=== PATIENT | male | born 1995 | race African-American/Black ===

== ENCOUNTER 2017-03-23 09:07 | Emergency (ER) | payer SELFPAY ==
[2017-03-23] MEDS ORDERED: MAGNESIUM HYDROXIDE/AL HYDROX 30 ML UDC PO ONE ×2 (09:30→09:43)
--- NOTE | 2017-03-23 09:33 | ED Physician Documentation ---
General Adult - HISTORIAN Historian: patient - HPI Stated Complaint: BLOOD IN URINE Chief Complaint: General Adult Additional Information: Saw blood in urine today. Girlfriend dx'ed with a UTI yesterday so he is concerned about STD. Had severe RUQ pain yesterday. Sharp, intense. Worse with deep breath, cough, after eating when he is full, with lying down. . Had loose stool at 0200 today. Mo fever. - ROS CONST: no problems - PAST HX Past History: none Surgeries/Procedures: none Allergies/Adverse Reactions: Allergies Allergy/AdvReac Type Severity Reaction Status Date / Time No Known Allergies Allergy Unverified 03/23/17 09:11 Home Medications: Ambulatory Orders Medication Instructions Recorded traMADol HCL [Ultram] 50 mg PO Q6H PRN #10 tablet 03/23/17 - SOCIAL HX Smoking History: cigarettes (1/2 PPD x 8 years) Alcohol Use: none Drug Use: none - FAMILY HX Family History: Yes (DM, M ) - VITAL SIGNS Vital Signs: Vital Signs Temp Pulse Resp BP Pulse Ox 97.4 F L 74 16 158/93 98 03/23/17 09:08 03/23/17 09:08 03/23/17 09:08 03/23/17 09:08 03/23/17 09:08 - REVIEWED ASSESSMENTS Nursing Assessment Reviewed: Yes Vitals Reviewed: Yes Progress - Progress Progress: Maalox helped abdominal pain. Labs good. ED Results Lab/Radiology - Orders Orders: ED Orders Category Date Time Status CBC/PLATELET/DIFF Routine Lab 03/23/17 Ordered CHLAMYDIA & GONORRHOEAE Stat Lab 03/23/17 Ordered CMP Routine Lab 03/23/17 Ordered URINALYSIS Routine Lab 03/23/17 Ordered Magnesium Hydroxide/Al Hydrox [Maalox] Med 03/23/17 09:30 Once 30 ml PO NOW ONE General Adult Physical Exam - PHYSICAL EXAM GENERAL APPEARANCE: mild distress EENT: eye inspection normal, ENT inspection normal, pharynx normal NECK: normal inspection, thyroid normal, supple RESPIRATORY: no resp distress, breath sounds normal CVS: reg rate & rhythm, heart sounds normal, no murmur ABDOMEN: soft, no organomegaly, normal bowel sounds, no distension, tenderness ( RUQ, at MCL) RECTAL: deferred BACK: normal inspection, no CVA tenderness, other (no midline tenderness) SKIN: warm/dry, normal color EXTREMITIES: normal range of motion (gait), no evidence of injury NEURO: CN's nml as tested, motor nml, sensation nml, cognition normal Discharge Clincal Impression: Abdominal pain in male Prescriptions: traMADol HCL [Ultram] 50 mg PO Q6H PRN #10 tablet PRN Reason: Pain Additional Instructions: Return to the ER if you cannot urinate for 10 hours. Drink plenty of water. Sip on over the counter Maalox, a teaspoon every hour or two, for the abdominal pain. Home Medications: Ambulatory Orders traMADol HCL [Ultram] 50 mg PO Q6H PRN #10 tablet 03/23/17 Condition: Good Disposition: 01 HOME, SELF-CARE Decision to Admit: NO Decision Time: 10:37
[2017-03-23] MEDS ORDERED: Lidocaine 2%Visc 15ml 20 MG/ML UDC ONE (09:43)
[2017-03-23 09:56] LABS: BASOPHILS % 0.7 (0.0-1.5); EOSINOPHILS % 4.6 % (0.0-6.8); MEAN CORPUSCULAR HEMOGLOBIN 30.1 pg (28.0-34.0); MEAN CORPUSCULAR VOLUME 96.2 fl (80.0-100.0); NEUTROPHILS # 4.6 # k/uL (1.4-7.7)
[2017-03-23 10:05] LABS: APPEARANCE,URINE Clear (CLEAR); COLOR,URINE Yellow (YELLOW); OCCULT BLOOD,URINE Negative (NEGATIVE); UROBILINOGEN URINE 0.2 Eu (0.2-1.0)
[2017-03-23 10:10] LABS: eGFR (African) > 60; eGFR (Non-African) > 60
[2017-03-23 10:13] LABS: AMORPHOUS SEDIMENT,UR FEW (NEGATIVE)
[2017-03-23] MEDS ORDERED: AZITHROMYCIN 250 MG TABLET PO ONE (10:27)
[2017-03-23] MEDS ORDERED: Lidocaine 1% 5ml(IM or SUTURE)(PAIN CLINIC) ONE (10:40)
[2017-03-23 11:03] VITALS: BP 140/72
== END 2017-03-23 11:00 | disposition home or self-care (01) ==
LOC: ED 09:07
DX: R10.9 Unspecified abdominal pain (principal); F17.210 Nicotine dependence, cigarettes, uncomplicated
CPT/HCPCS: 80053; 81002; 85025; 87801; 99283; A9270; J0696

== ENCOUNTER 2018-01-22 07:09 | Emergency (ER) | payer SELFPAY ==
[2018-01-22 07:27] VITALS: BP 131/62
--- NOTE | 2018-01-22 07:35 | ED Physician Documentation ---
General Adult - HISTORIAN Historian: patient - HPI Stated Complaint: Sore throat/Cough Chief Complaint: Sore Throat Additional Information: 22yo male who developed a sore throat 3 days ago that has been getting worse. This AM awoke with sweats, and a mild nonproductive cough. Patient denies any rash, has some mild achiness. Timing: still present - ROS CONST: no problems - PAST HX Past History: none Other History: none Surgeries/Procedures: none Allergies/Adverse Reactions: Allergies Allergy/AdvReac Type Severity Reaction Status Date / Time No Known Allergies Allergy Verified 01/22/18 07:27 Home Medications: Ambulatory Orders Medication Instructions Recorded Amoxicillin [Trimox] 500 mg PO TID #30 capsule 01/22/18 - SOCIAL HX Smoking History: greater than 1 pack/day Alcohol Use: none Drug Use: none - FAMILY HX Family History: No - VITAL SIGNS Vital Signs: Vital Signs Temp Pulse Resp BP Pulse Ox 100.2 F H 91 H 16 131/62 98 01/22/18 07:15 01/22/18 07:15 01/22/18 07:15 01/22/18 07:15 01/22/18 07:15 - REVIEWED ASSESSMENTS Nursing Assessment Reviewed: Yes Vitals Reviewed: Yes ED Results Lab/Radiology - Lab Results Lab Results: Rapid strep - POSITIVE General Adult Physical Exam - PHYSICAL EXAM GENERAL APPEARANCE: mild distress EENT: eye inspection normal, pharyngeal erythema (minimal exudate), purulent nasal drainage NECK: normal inspection, lymphadenopathy (mild to ant cervical) RESPIRATORY: no resp distress, chest non-tender, breath sounds normal. No: wheezes, rales, rhonchi CVS: reg rate & rhythm, heart sounds normal, equal pulses, no murmur SKIN: warm/dry, normal color NEURO: oriented X3, mood/affect nml Discharge Clincal Impression: Strep pharyngitis Referrals: Primary Doctor,No [Primary Care Provider] - 2 Days Additional Instructions: Drink a lot of fluids. Gargle with salt water. Use throat lozenges as needed for pain. TAKE ALL OF THE ANTIBIOTICS UNTIL IT IS GONE. Amoxil 500mg 3 times a day. Condition: Stable Disposition: 01 HOME, SELF-CARE Decision to Admit: NO Date of Decison to Admit: 01/22/18 Decision Time: 07:45
[2018-01-22] MEDS ORDERED: AMOXICILLIN 500 MG CAPSULE PO ONE (07:40)
== END 2018-01-22 07:50 | disposition home or self-care (01) ==
LOC: ED 07:09
DX: J02.0 Streptococcal pharyngitis (principal)
CPT/HCPCS: 87880; 99282

== ENCOUNTER 2018-11-06 11:35 | Emergency (ER) | payer SELFPAY ==
--- NOTE | 2018-11-06 11:46 | ED Physician Documentation ---
General Adult - HISTORIAN Historian: patient - HPI Stated Complaint: breast lump Chief Complaint: General Adult Onset: days ago (2) Timing: still present Severity: mild Further Comments: yes (Per pt he has had a pain and lump under his left nipple x 3 days "or so" he does note increased weight lifting and he has pain with touch and lifting the left arm. He has no breast discharge. He also has a rash on his neck. No other complaints) Last known Well Code/Unknown Code: Unknown - ROS CONST: no problems - PAST HX Past History: none Immunizations: UTD Allergies/Adverse Reactions: Allergies Allergy/AdvReac Type Severity Reaction Status Date / Time No Known Allergies Allergy Verified 11/06/18 11:52 Home Medications: Ambulatory Orders Medication Instructions Recorded NK 11/06/18 - SOCIAL HX Smoking History: cigarettes Alcohol Use: none Drug Use: none - FAMILY HX Family History: No - VITAL SIGNS Vital Signs: Vital Signs Temp Pulse Resp BP Pulse Ox 131/62 01/22/18 07:50 - REVIEWED ASSESSMENTS Nursing Assessment Reviewed: Yes Vitals Reviewed: Yes General Adult Physical Exam - PHYSICAL EXAM GENERAL APPEARANCE: no distress EENT: eye inspection normal NECK: normal inspection RESPIRATORY: no resp distress, chest non-tender, breath sounds normal CVS: reg rate & rhythm, heart sounds normal, equal pulses, no murmur ABDOMEN: soft, no distension BACK: normal inspection SKIN: other (melani rash on neck and chest - area on left areola with swelling and pain to touch area of concern is approx 2 cm and raised. Pain to touch. No dimpling of areola ) EXTREMITIES: non-tender, normal range of motion, no evidence of injury, no edema NEURO: oriented X3 Discharge Clincal Impression: Breast lump, Tinea versicolor Referrals: Primary Doctor,No [Primary Care Provider] - 2 Days Comments: 1. Selenium Sulide apply to affected area twice daily x 7 days 2. Medrol Dose pack - take as directed 3. Bactrim DS take 1 by mouth twice daily x 10 days 4. Follow up with PCP in 5-7 days 5. Return to ER for concerns Condition: Stable Disposition: 01 HOME, SELF-CARE Decision to Admit: NO Date of Decison to Admit: 11/06/18 Decision Time: 12:03
[2018-11-06 12:13] VITALS: BP 131/62
== END 2018-11-06 12:11 | disposition home or self-care (01) ==
LOC: ED 11:35
DX: N63.42 Unspecified lump in left breast, subareolar (principal); B36.0 Pityriasis versicolor
CPT/HCPCS: 99281; 99282

== ENCOUNTER 2019-05-16 23:31 | Emergency (ER) | payer SELFPAY ==
[2019-05-17 00:03] VITALS: BP 127/68
--- NOTE | 2019-05-17 00:04 | ED Physician Documentation ---
Upper Respiratory Symptoms - HISTORIAN Historian: patient - HPI Stated Complaint: cough, sore throat, fever Chief Complaint: Cough/ Upper Respiratory Additional Information: Patient presents to ED with a 4-5 day history of sore throat, cough, nasal congestion and fever which started yesterday. Onset: days ago Duration: intermittent episodes Context: denies: recent foreign travel Severity: mild Associated Symptoms: fever, runny nose, sinus pain, sinus drainage, productive cough - ROS CONST/EYES: denies: weakness CVS/RESP: denies: chest pain, shortness of breath LYMPH: denies: rash GI/: denies: vomiting, nausea, diarrhea MS/SKIN: denies: muscle aches - PAST HX Lung Disease: none PE Risk Factors: none Surgeries/Procedures: none Allergies/Adverse Reactions: Allergies Allergy/AdvReac Type Severity Reaction Status Date / Time No Known Allergies Allergy Verified 05/17/19 00:03 Home Medications: Ambulatory Orders Medication Instructions Recorded Azithromycin 250 mg PO DIRECTED #6 tablet 05/17/19 predniSONE [Deltasone] 20 mg PO DIRECTED #6 tablet 05/17/19 - SOCIAL HX Smoking History: non-smoker Alcohol Use: none Drug Use: none - FAMILY HX Family History: none - VITAL SIGNS Vital Signs: Vital Signs Temp Pulse Resp BP Pulse Ox 99.2 F 60 18 127/68 100 05/16/19 23:40 05/16/19 23:40 05/16/19 23:40 05/16/19 23:40 05/16/19 23:40 - REVIEWED ASSESSMENTS Nursing Assessment Reviewed: Yes Vitals Reviewed: Yes Upper Respiratory Symptoms - EXAM General Appearance: alert EENT: eyes nml inspection, maxillary, rhinorrhea, pharyngeal erythema. No: tonsillar exudate Neck: normal inspection, supple Respiratory: no resp. distress, breath sounds nml Abdomen: non-tender CVS: reg rate & rhythm, heart sounds normal Skin: color nml, no rash, warm,dry Extremities: non-tender Neuro/Psych: oriented x3, mood/affect nml Discharge Clincal Impression: Acute sinusitis Qualifiers: Sinusitis location: maxillary Recurrence: non-recurrent Qualified Code(s): J01.00 - Acute maxillary sinusitis, unspecified Prescriptions: Azithromycin 250 mg PO DIRECTED #6 tablet predniSONE [Deltasone] 20 mg PO DIRECTED #6 tablet Referrals: Primary Doctor,No [Primary Care Provider] - 2 Days Additional Instructions: 1. Take antibiotic until gone 2. Cool mist vaporizer with sleep 3. Add a daily antihistamine such as Claritin, Zyrtec or Kesha 4. Drink plenty of fluids 5. Follow up with PCP within 1 week 6. Return to ER for new or worsening symptoms Condition: Stable Decision to Admit: NO Date of Decison to Admit: 05/17/19 Decision Time: 00:10
== END 2019-05-17 00:19 ==
LOC: ED 23:31
DX: J01.00 Acute maxillary sinusitis, unspecified (principal)
CPT/HCPCS: 99281; 99284